=== PATIENT | male | born 1960 | race Caucasian/White ===

== ENCOUNTER → 2017-08-11 | Outpatient (CLI) | payer MEDICAID | LOC: FIMAGING 16:53 | PROVIDERS: ATTEND Physician Assistant | DX: I51.7 Cardiomegaly (principal) ==

== ENCOUNTER → 2017-12-08 | Outpatient (CLI) | payer MEDICAID | LOC: FCPNEURO 23:30 | PROVIDERS: ATTEND Psychiatry & Neurology Sleep Medicine | DX: G47.39 Other sleep apnea (principal) ==

== ENCOUNTER → 2018-04-26 | Outpatient (CLI) | payer MEDICAID | LOC: FCPNEURO 21:00 | PROVIDERS: ATTEND Psychiatry & Neurology Sleep Medicine | DX: G47.39 Other sleep apnea (principal) ==